=== PATIENT | female | born 1950 | race Caucasian/White ===

== ENCOUNTER → 2022-10-22 12:34 | Outpatient (CLI) | payer MEDICARE, OTHER, SELFPAY ==
--- NOTE | ~2022-10-22 | CT_ITS ---
Non-contrast CT scan of the Abdomen and Pelvis Clinical indication: Abdominal bulge Technique: 2.5 mm axial scans were obtained through the abdomen and pelvis without intravenous or or al contrast. Dose reduction technique was used on this scan by utilizing automated exposure control a nd iterative reconstruction technique. The dose-length product (DLP) was 789.35 mGy-cm. COMPARISON: 08/06/2003 Findings: Images through the lung bases reveal no abnormalities. There is no evidence of renal or ureteral calculi. The kidneys and the ureters are nondilated. The liver, spleen, pancreas, and adrenals appear normal. Cholecystectomy clips are present. There are atherosclerotic calcifications of the aorta. There is no evidence of bowel obstruction. Tiny ventral fat-containing hernia noted. Images through the pelvis were performed. There is no evidence of ascites or lymphadenopathy. Urinary bladder unremarkable. No adnexal mass evident. No ascites. Patient is post hysterectomy. There are bilateral L5 pars interarticularis defects, with 12 mm anterolisthesis of L5 over S1. Impression: Tiny ventral fat-containing hernia. Bilateral L5 pars interarticularis defects, with 12 mm anterolisthesis of L5 over S1. Reviewed, dictated and finalized at location . Impression: Tiny ventral fat-containing hernia. Bilateral L5 pars interarticularis defects, with 12 mm anterolisthesis of L5 ov er S1.
== END ==
PROVIDERS: PCP Surgery Plastic and Reconstructive Surgery; Visit Provider Surgery Plastic and Reconstructive Surgery
DX: R19.00 Intra-abdominal and pelvic swelling, mass and lump, unspecified site (principal)
CPT/HCPCS: 74176

== ENCOUNTER 2023-01-13 12:25 | Outpatient (CLI) | payer OTHER, MEDICARE, SELFPAY ==
--- NOTE | 2023-01-13 12:30 | ECG_ITS ---
Measurements Intervals [place] Rate: 66 P: 39 FL: 166 QRS: 29 QRSD: 90 T: 49 QT: 407 QTc: 427 Interpretive Statements SINUS RHYTHM LOW QRS VOLTAGE IN PRECORDIAL LEADS [QRS DEFLECTION < 1.0 mV IN CHEST LEADS] NONSPECIFIC ST & T-WAVE ABNORMALITY ABNORMAL ECG COMPARED TO ECG 12/13/2018 10:03:46 NO SIGNIFICANT CHANGE Electronically Signed On 01-13-2023 14:37:10 CDT by Prashanth Roberts M.D.
== END 2023-01-13 12:26 | disposition home or self-care (01) ==
LOC: ANHSURGERY 12:29
PROVIDERS: Visit Provider Surgery Plastic and Reconstructive Surgery
DX: Z01.818 Encounter for other preprocedural examination (principal); I10 Essential (primary) hypertension; R94.31 Abnormal electrocardiogram [ECG] [EKG]
CPT/HCPCS: 93005

== ENCOUNTER 2023-01-21 03:30 | Day surgery (SDC) | payer OTHER, MEDICARE, SELFPAY ==
--- NOTE | 2023-01-10 14:01 | PC.NURSE ---
Report to the Outpatient Waiting Room, entrance under the green pavilion located off [facility], at time 0600 on date __01/21/23 . Planned Procedure Time: __729 . Time changes happen often and if your time is changed the preop area will call you the afternoon before. - You and your visitor will be asked to self-screen and do not enter if you have any COVID symptoms. - A mask is optional within the hospital at this time. Patients may have clear liquids (water, carbonated beverages, clear teas, apple juice) until 3 hours prior to surgery with a maximum of 20 ounces. - No food from midnight until time of surgery - Infants may have breast milk until 4 hours before surgery, formula 6 hours prior to surgery. - Children will be allowed to drink immediately following surgery. If applicable, please bring a bottle or sippy cup to assist with drinking. Juice, water, soda, and popsicles are readily available. For infants on formula, please bring formula the day of surgery. Pacifiers are allowed. Take the following medications with a SIP of water the morning of surgery: _CARVEDILOL,ESCITALOPRAM,LEVOTHYROXINE DO NOT STOP ANY OF YOUR OTHER PRESCRIPTION MEDICATIONS PRIOR TO SURGERY ?EXCEPT THE FOLLOWING Medications to discontinue per physician ____ALL VITAMIN AND SUPPLEMENTS 3 DAYS PRE OP.LAST DOSE 01/17/23 PT STATES HOLD ASPIRIN LAST DOSE 01/11/[address] DR BOLANOS Please no make-up, nail afghan, hairspray, perfume, deodorant, or body powder the day of surgery. No jewelry (including any body piercings) or valuables the day of surgery, leave them at home. Please take a shower or bath the night before, or the morning of, surgery with an antibacterial soap. Wear comfortable, loose fitting clothing. Children are encouraged to wear pajamas. - Jewelry must be removed prior to entering the operating room. Rings and piercings that are not removed may be cut off. - The hospital will not accept responsibility for valuables. - Please leave all valuables, including medications, at home the day of surgery. HIBICLENS SHOWER MORNING OF SURGERY If you are going home after surgery, a licensed class a regional truck driver must drive you home. - NO public transportation without another adult if you receive anesthesia. - We recommend that an adult stay with you for 24 hours following discharge. - We also recommend that you do not drive, make important decision, drink alcoholic beverages, or take any drugs that were not prescribed by your health care provider for at least 24 hours after your discharge time. For Pediatric surgeries, we recommend two adults accompany the child home. Follow any additional instructions given to you from your surgeon. If you or anyone in your household have experienced Covid symptoms in the past week, please notify your surgeon or the nurse liaison at the phone number below for possible testing. Telephone instructions given to __PATIENT and asked if any additional questions and then verbalized understanding. Patient advised to call surgeon office or pre surgery nurse liaison [phone] if any additional questions.
[2023-01-10 14:11] VITALS: BMI 31.1
[2023-01-21] VITALS (9 sets, daily range): BP systolic 107–138; BP diastolic 59–72; PULSE 63–71; RESP 12–18; TEMP 36.2–37; O2SAT 93–100
[2023-01-21] MEDS: LACTATED RINGERS 1,000 ML 30 ML IV CONT (06:25)
[2023-01-21] MEDS: ACETAMINOPHEN 500 MG TABLET 1000 MG PO (06:29)
[2023-01-21] MEDS: KETOROLAC 15 MG/ML VIAL (*BKC) IV PUSH (06:29)
--- NOTE | 2023-01-21 07:06 | WPDHPUPDATE1 ---
History and Physical Update Update Date/Time: 01/21/23 07:06 History and Physical has been reviewed, including an updated exam of the patient. There are NO changes in the patient's condition. Risks, benefits, and alternatives have been discussed and questions answered. Patient agrees to proceed with procedure.
--- NOTE | 2023-01-21 07:16 | PM.IMHP ---
H&P: HPI History of Present Illness Date/Time: 01/21/23 07:16 Chief Complaint: ventral hernia Narrative: 72 yo woman presents for ventralhernia repair. She reports no changes since last seen in office. Review of Systems Review of Systems: All systems reviewed & are unremarkable except as noted in HPI and below Constitutional: Constitutional: Denies chills, Denies fever(s), Denies headache(s) and Denies weight loss Eyes: Eyes: Denies change in vision ENT: Denies dizziness, Denies headache(s), Denies neck mass and Denies throat swelling Cardiovascular: Cardiovascular: Denies chest pain, Denies lightheadedness and Denies dyspnea Respiratory: Respiratory: Denies cough, Denies dyspnea and Denies wheezing Gastrointestinal: Gastrointestinal: Denies abdominal pain, Denies change in bowel habits, Denies nausea and Denies vomiting Genitourinary: Genitourinary: Denies hematuria and Denies dysuria Musculoskeletal: Musculoskeletal: Reports as per HPI Integumentary/Breasts: Skin/Breast: Reports as per HPI Neurologic: Denies dizziness and Denies headache(s) Allergic/Immunologic: Allergic/Immunologic: Denies throat swelling and Denies wheezing [facility] Past Medical History Medical History (Updated 11/09/22 @ 15:24 by Phi Parks DO) CAD (coronary artery disease) High cholesterol History of acute myocardial infarction History of blood transfusion Hypertension Hypothyroid Surgical History Surgical History History of abdominoplasty History of blepharoplasty History of cholecystectomy History of hysterectomy History of right knee joint replacement Family History Family History Father Family history of coronary artery disease Sibling Family history of coronary artery disease Other Hypertension Social History Social History Smoking status: Never smoker Alcohol intake: never Living arrangements: with family Occupation/Education: retired Spiritual care concerns: No Meds Home Medications and Allergies Home Medications Medication Instructions Recorded Confirmed Type atorvastatin 20 mg tablet 20 mg PO 3XW 04/25/19 01/21/23 History carvedilol 12.5 mg tablet 12.5 mg PO Q12H 04/25/19 01/21/23 History escitalopram oxalate 10 mg tablet 10 mg PO DAILY 04/25/19 01/21/23 History levothyroxine 75 mcg tablet 75 mcg PO DAILY 04/25/19 01/21/23 History aspirin 81 mg capsule 81 mg PO DAILY 11/04/22 01/21/23 History amlodipine 5 mg tablet 5 mg PO HS 01/10/23 01/21/23 History calcium carbonate 500 mg-vitamin 1 tablet PO DAILY 01/10/23 01/21/23 History D3 3.125 mcg (125 unit) tablet cholecalciferol (vitamin D3) 125 125 mcg PO DAILY 01/10/23 01/21/23 History mcg (5,000 unit) capsule coQ10 (ubiquinol) 200 mg capsule 200 mg PO 3XW 01/10/23 01/21/23 History ezetimibe 10 mg tablet (Zetia) 10 mg PO HS 01/10/23 01/21/23 History losartan 100 mg tablet 100 mg PO DAILY 01/10/23 01/21/23 History omeprazole 40 mg capsule,delayed 40 mg PO BID 01/10/23 01/21/23 History release Allergies Allergy/AdvReac Type Severity Reaction Status Date / Time cefuroxime Allergy Unknown Itching Verified 01/21/23 06:40 quinapril Allergy Unknown Cough Verified 01/21/23 06:40 rosuvastatin Allergy Unknown Muscle Pain Verified 01/21/23 06:40 Sulfa (Sulfonamide Allergy Unknown Rash Verified 01/21/23 06:40 Antibiotics) Vital Signs Vital Signs - 24 hr 01/21/23 06:00 Temperature 36.2 C L Pulse Rate 63 Respiratory Rate 18 Blood Pressure 138/71 Pulse Oximetry 97 Oxygen Delivery Room Air Exam Const: General: no acute distress and alert Orientation/consciousness: patient oriented x3 HENMT: Head: normocephalic and atraumatic Ears: hearing grossly normal bilaterally Face/Nose/Sinus: Normal nares present Mouth: Yes Normal oral and palatal
--- NOTE | 2023-01-21 07:17 | WPDHPUPDATE1 ---
History and Physical Update Update Date/Time: 01/21/23 07:17 History and Physical has been reviewed, including an updated exam of the patient. There are NO changes in the patient's condition. Risks, benefits, and alternatives have been discussed and questions answered. Patient agrees to proceed with procedure.
--- NOTE | 2023-01-21 07:25 | WPDANESEPPF ---
Anes - Initial Pre Proc Eval Procedure: Operation Date: 01/21/23 07:30 Proposed Procedures p Lower Abdominal Liposuction, Mons Pubis Liposuction, Lower Abdominal Scar Revision, - Ki Otoole MD s Open Ventral Hernia Repair with Possible Mesh - Phi Parks DO Date/Time: 01/21/23 07:25 Surgeon: Ki Otoole MD Pre Op Diagnosis: localized adiposity, hx of abdominoplasty Patient Data Age: 72 Gender: F Height: 1.55 m Weight: 77 kg Last Vital Signs Temp 36.2 C L 01/21/23 06:00 Pulse 63 01/21/23 06:00 Resp 18 01/21/23 06:00 BP 138/71 01/21/23 06:00 Pulse Ox 97 01/21/23 06:00 O2 Del Method Room Air 01/21/23 06:00 Allergies Allergy/AdvReac Type Severity Reaction Status Date / Time cefuroxime Allergy Unknown Itching Verified 01/21/23 06:40 quinapril Allergy Unknown Cough Verified 01/21/23 06:40 rosuvastatin Allergy Unknown Muscle Pain Verified 01/21/23 06:40 Sulfa (Sulfonamide Allergy Unknown Rash Verified 01/21/23 06:40 Antibiotics) Home Medications Medication Instructions Recorded Confirmed Type atorvastatin 20 mg tablet 20 mg PO 3XW 04/25/19 01/21/23 History carvedilol 12.5 mg tablet 12.5 mg PO Q12H 04/25/19 01/21/23 History escitalopram oxalate 10 mg tablet 10 mg PO DAILY 04/25/19 01/21/23 History levothyroxine 75 mcg tablet 75 mcg PO DAILY 04/25/19 01/21/23 History aspirin 81 mg capsule 81 mg PO DAILY 11/04/22 01/21/23 History amlodipine 5 mg tablet 5 mg PO HS 01/10/23 01/21/23 History calcium carbonate 500 mg-vitamin 1 tablet PO DAILY 01/10/23 01/21/23 History D3 3.125 mcg (125 unit) tablet cholecalciferol (vitamin D3) 125 125 mcg PO DAILY 01/10/23 01/21/23 History mcg (5,000 unit) capsule coQ10 (ubiquinol) 200 mg capsule 200 mg PO 3XW 01/10/23 01/21/23 History ezetimibe 10 mg tablet (Zetia) 10 mg PO HS 01/10/23 01/21/23 History losartan 100 mg tablet 100 mg PO DAILY 01/10/23 01/21/23 History omeprazole 40 mg capsule,delayed 40 mg PO BID 01/10/23 01/21/23 History release Patient hx anesthesia problems: none Family hx anesthesia problems: none Results Review: All pre-operative results and documents have been reviewed as part of the pre-operative evaluation. [facility] Past Medical History Medical History CAD (coronary artery disease) High cholesterol History of acute myocardial infarction History of blood transfusion Hypertension Hypothyroid Surgical History Surgical History History of abdominoplasty History of blepharoplasty History of cholecystectomy History of hysterectomy History of right knee joint replacement Family History Family History Father Family history of coronary artery disease Sibling Family history of coronary artery disease Other Hypertension Social History Social History Smoking status: Never smoker Alcohol intake: never Living arrangements: with family Occupation/Education: retired Spiritual care concerns: No Anes - Eval Final PreProcedure Day of Procedure 01/21/23 07:25 Patient weight: obese Heart: regular rate and rhythm Lungs: clear to auscultation Airway: Mallampati scale class II Neurological: alert and oriented Last oral intake: >/= 8 hours ASA classification: III Emergent: no Anesthetic plan: proceed Anesthesia type and monitoring: general ETT and standard monitoring Results Review: All pre-operative results and documents have been reviewed as part of the pre-operative evaluation. Informed Consent: The patient's anesthetic plan and its attendant risks and benefits were discussed with the patient/family/POA. Questions were solicited and answers provided to the satisfaction of the patient/family/POA.
[2023-01-21] MEDS: LACTATED RINGERS IRRIG 1,000 ML, LIDOCAINE HCL 1% LOCAL INJ 50 ML, EPINEPHrine HCL INJ ... INFILTRATE (07:30)
[2023-01-21] MEDS: TRANEXAMIC ACID 1,000MG/ISO100 1,000 MG/100 ML BAG 200 MG IVPB (07:30)
[2023-01-21] MEDS: BUPIVACAINE/EPINEPHRINE 0.5% 50 ML VIAL 20 ML INFILTRATE (07:30)
[2023-01-21] MEDS: ceFAZolin 2 GM/D5W 50 ML 2 GM/50 ML BAG IVPB (07:30)
--- NOTE | 2023-01-21 07:42 | W.PM.PROC2 ---
Procedure Note - Detailed Date of Procedure 01/21/23 Pre-op Diagnosis localized adiposity, hx of abdominoplasty Post-op Diagnosis Same Procedure Performed 1. Lower abdominal / mons suction lipectomy 2. Lower abdominal scar revision after abdominoplasty (completed elsewhere) Surgeon Ki Otoole MD Anesthesia General Findings Lipoaspirate: 700 cc Tissue removed: 271.6 grams Description of Procedure They are here today for the above procedures. Previously and again today the risks, benefits, alternatives were discussed in extensive detail. I wanted them to be very realistic about the risks involved as well as expectations. I was very upfront and honest about what this will and will not accomplish. She understands she will still have an abdominal bulge. We discussed aftercare and what to monitor for. I was very upfront about the risks of wound breakdown leading to loss of skin, open wounds, and need for additional procedures with permanent abdominal deformity. We discussed DVT/PE risks and management. Made sure answered all of their questions to their satisfaction today and consent was obtained. They were marked in the preoperative holding area with their verification. The patient was taken to the operating room. Anesthesia was provided by anesthesiology. Prepped and draped in a standard sterile fashion. A surgical time-out was taken. Dr. Kasey Parks completed his portion of the procedure first. See his notes for details. Abdomen Stab incisions were made and tumescent solution was infiltrated. Once adequate time was allowed for hemostasis a 5mm basket and 3mm multi hole cannula were utilized to complete suction lipectomy based on S.A.F.E. technique in multiple planes and passes. Suction lipectomy continued to result based on pre-operative planning, intra-operative observation, and rolling pinch test which were in full agreement. This was of lower abdomen / mons region. A 10 blade was used to make the upper incision. I continued dissection down to the level of fascia. Continued inferior along the fascia elevating just what was necessary excision of the lower abdominal scar tissue for tissue laxity. A 10 blade was used to resect this tissue. I then approximated using a 3 point suture with 2-0 Vicryl followed by 3-0 stratafix ,running subcuticular 4-0 Monocryl, and tissue glue. Fluffs and an abdominal binder were placed. The patient was transferred to the bed in a flexed position. Awoken and taken to the PACU without difficulty. All instrument and sponge counts were correct at the end of the case. Estimated Blood Loss 30 Drains No Packing No Pathology None sent Complications No immediate complications Condition Stable Disposition PACU
[2023-01-21] MEDS: SCOPOLAMINE 1.5 MG PATCH TRANSDERM (07:45)
--- NOTE | 2023-01-21 08:18 | P.OP_ITS ---
Procedure Note - Detailed Date of Procedure 01/21/23 Pre-op Diagnosis Ventral hernia Post-op Diagnosis Same (1cm Ventral hernia) Procedure Performed Open 1 cm ventral hernia repair Surgeon Phi Parks, DO Anesthesia General and Local (0.5% bupivacaine with epinephrine) Indications This is a 72-year-old woman who presents with a bulge just above her umbilicus that she noticed about 3 or 4 years ago. The bulge has slightly increased in size. She does have a prior history of umbilical and ventral hernia repair as well as abdominal plasty. She underwent a CT abdomen 10/22/2022 which showed evidence of a small fat containing ventral hernia. She has seen Plastic surgery for planning scar revision and liposuction. Discussions were made with the patient about treatment options and decision was made to proceed with open ventral hernia repair with possible mesh at the same time as scar revision and liposuction. Findings Open ventral hernia repair was performed. The patient was found to have a 1 cm ventral hernia just superior to the umbilicus. No other surrounding abnormalities were noted. The decision was made to repair the hernia primarily using 0 Ethibond [id number] sutures. A total of 3 sutures were placed transversely to approximate the fascia. No specimens were sent for pathology. Description of Procedure Procedure as well as risks, benefits, and alternatives were discussed with the patient. Written consent was obtained and placed in chart prior to procedure. Patient was brought back to surgical suite. She was placed supine on operating table. Time-out was done to confirm patient and procedure. She was then intubated by the anesthesia department. Her abdomen was prepped and draped in sterile fashion using chlorhexidine prep. 0.5% bupivacaine with epinephrine was infiltrated locally around the location of the hernia. A 3 cm transverse incision was then made superior to the umbilicus directly over the hernia site using a 15 blade scalpel. Electrocautery was used for hemostasis and for dissection through the subcutaneous tissue. The hernia sac was identified and carefully dissected free all the way down to the level of the fascia. The hernia sac was then excised using electrocautery. The fascia was cleared around the hernia defect using electrocautery. No other hernias were identified. The hernia measured 1 cm. Decision was made to close this primarily. 0 Ethibond [id number] sutures were placed to approximate the fascia. A total of 3 sutures were placed transversely to bring the fascia together. This did not appear to be under any tension. The sutures were tied down in place in the repair was then inspected. It appeared secure. No other abnormalities were noted. 0.5% bupivacaine with epinephrine was infiltrated locally around the fascia and subcutaneous space. Romel's fascia was then reapproximated using 3- 0 Vicryl simple interrupted sutures. The skin was then approximated using 4 Monocryl running subcuticular suture. Exofin glue was then applied on top. Dr. Otoole was then called in to perform his portion of the procedure. Please refer to his operative report for his details. Estimated Blood Loss 5 Pathology None sent Complications No immediate complications Condition Stable Disposition Same day [facility] Billing Surgery - Charge Forward: Surgery Billing
[2023-01-21] MEDS: fentaNYL CITRATE INJ (*CRX) 100 MCG/2 ML VIAL 25 MCG IV PUSH (10:13)
[2023-01-21] MEDS: oxyCODONE HCL (*CRX) 5 MG TAB IR PO (11:26)
== END 2023-01-21 11:35 | disposition home or self-care (01) ==
PROVIDERS: Surgery; Visit Provider Surgery Plastic and Reconstructive Surgery
PROC: (CPT 15877; principal; 2023-01-21 07:30)
PROC: 0WQF0ZZ Repair Abdominal Wall, Open Approach (ICD-10-PCS; CPT 49591; 2023-01-21 07:30)
DX: K43.9 Ventral hernia without obstruction or gangrene (principal); Z41.1 Encounter for cosmetic surgery; E65 Localized adiposity; L57.4 Cutis laxa senilis; I25.10 Atherosclerotic heart disease of native coronary artery without angina pectoris; I10 Essential (primary) hypertension; E03.9 Hypothyroidism, unspecified; E78.00 Pure hypercholesterolemia, unspecified; I25.2 Old myocardial infarction; Z79.82 Long term (current) use of aspirin; E66.9 Obesity, unspecified; Z68.32 Body mass index [BMI] 32.0-32.9, adult
CPT/HCPCS: 49591; 15877; 11406; 12036; A9270; J0171; J0690; J1100; J1170; J1885; J2405; J2704; J3010; J7120